=== PATIENT | male | born 1965 | race Caucasian/White ===

== ENCOUNTER 2020-10-07 17:34 | Emergency (ER) | payer OTHER ==
[~2020-10-07] VITALS: Ht 182.9 cm; Wt 106.6 kg
[2020-10-07] MEDS ORDERED: PENICILLIN V P500 MG PO (18:19)
[2020-10-07] MEDS ORDERED: NORCO5 PO (18:19)
[2020-10-07] MEDS ORDERED: NAPROSYN500 MG PO (18:19)
[2020-10-07 18:30] VITALS: BP 165/88
== END 2020-10-07 18:30 | disposition home or self-care (01) ==
LOC: M.ERS 17:34
DX: K04.7 Periapical abscess without sinus (principal)